=== PATIENT | female | born 1995 | race Hispanic/Latino ===

== ENCOUNTER → 2019-12-04 | Day surgery (SDC) | payer OTHER ==
[~2019-12-04] MED LIST: FENTANYL CITRATE/PF 100MCG/2 ML INJ ONE; MELOXICAM15 MG PO; MIDAZOLAM HCL 2 MG/2 ML VIAL ONE; PROPOFOL IV EMULSION 10 MG/ML 50 ML VIAL ONE
--- OUTSIDE RECORDS SUMMARY | 2019-12-04 10:15 | XMS REPORT ---
Author Author [facility] Organization [facility] Address Unknown Phone Unavailable Care Team Providers Care Radio Television Announcer Name Role Phone Unavailable Unavailable Payers Payer Name Policy Type Policy Number Effective Date Expiration Date Problems This patient has no known problems. Allergies, Adverse Reactions, Alerts Allergy Name Allergy Type Status Severity Reaction(s) Onset Date Inactive Date Treating Clinician Comments No Known Allergies DA Active U 2016-11-11 00:00:00 Medications This patient has no known medications. Results Test Description Test Time Test Comments Text Results Atomic Results Result Comments STREPTOCOCCUS PCR SCREEN 2019-10-09 02:29:00 STREPTOCOCCUS DYSGALACTIAE (test code=STREPGC) NEGATIVE FOR G/C NEGATIVE STREPA MOLECULAR (test code=STREPAMOL) NEGATIVE FOR GRP A NEGATIVE - XR CHEST 2 [id number] 08:40:00 FAX: Jero Recio [place]: [place] [address]: REG Name: Hali ADRIANA FARLEY [facility] FSED : [birth year] Age/S: 24/F [address] Unit #: [id number] Loc: [facility] [address] Phys: Jero Recio MD [place], [place] [address] Acct: [id number] Dis Date: Status: REG ER PHONE #: Exam Date: 10/08/2019 0835 FAX #: Reason: cough EXAMS: CPT CODE: [id number] XR CHEST 2 V 16102 EXAM: Chest X-ray, 2 views; CLINICAL HISTORY: Chest pain and cough; FINDINGS: The lungs are clear, no infiltrates, no edema; no effusions; no pneumothor ax; normal cardiomediastinal silhouette. No significant change rachel red with a study from November 11, 2016. IMPRESSION: Nor mal chest x-ray. Location code: Electr onically Signed by Jacque Boss on 9 at 0840 Reported and signed by: Santos gonzalez M.D. CC: Jero Recio MD Technologist: MACKENZIE COLON RT(R)(CT) Trnscrd Date/Time/By: 10/08/2019 (0840) : By: TreeW Orig Print D/T: S: 10/08/2019 (0843) PAGE 1 Signed Report
[2019-12-04 12:44] VITALS: BP 120/70
== END | disposition home or self-care (01) ==
LOC: OR 10:13
PROVIDERS: ATTEND Internal Medicine
DX: R19.7 Diarrhea, unspecified (principal); K29.00 Acute gastritis without bleeding; K29.50 Unspecified chronic gastritis without bleeding; K21.9 Gastro-esophageal reflux disease without esophagitis; K64.0 First degree hemorrhoids; E66.01 Morbid (severe) obesity due to excess calories; M19.90 Unspecified osteoarthritis, unspecified site; Z68.43 Body mass index [BMI] 50.0-59.9, adult
CPT/HCPCS: 43239; 45380; 81025; J2250; J2704; J3010; 45378